=== PATIENT | female | born 1995 | race African-American/Black ===

== ENCOUNTER 2022-04-11 21:44 | Emergency (ER) | payer SELFPAY ==
[~2022-04-11] VITALS: Ht 160 cm; Wt 86.0 kg
[2022-04-12] MEDS ORDERED: HYDROCODONE/ACETAMINOPHEN 5/325MG TABLET PO ONE (01:45)
[2022-04-12] MEDS ORDERED: NAPR-1176 MT (04:12)
[2022-04-12] MEDS ORDERED: CYCL10TA21 MT (04:12)
[2022-04-12 04:30] VITALS: BP 131/87
== END 2022-04-12 04:50 | disposition home or self-care (01) ==
LOC: ER 22:12
DX: S40.012A Contusion of left shoulder, initial encounter (principal); S40.011A Contusion of right shoulder, initial encounter; R51.9 Headache, unspecified; M54.6 Pain in thoracic spine; M54.2 Cervicalgia; Z98.51 Tubal ligation status; V03.90XA Pedestrian on foot injured in collision with car, pick-up truck or van, unspecified whether traffic or nontraffic accident, initial encounter; Y93.89 Activity, other specified; Y92.488 Other paved roadways as the place of occurrence of the external cause
CPT/HCPCS: 71045; 72128; 73030; 81025; 99284; A4565